=== PATIENT | female | born 1945 | race Caucasian/White ===

== ENCOUNTER 2023-04-03 08:45 | Inpatient (IN) | payer MEDICARE, OTHER ==
[2023-04-03] MEDS ORDERED: SODIUM CHLORIDE 0.9% 1,000 ML IV STA (08:49)
[2023-04-03 08:52] LABS: Glucose,Whole Blood 130 mg/dL (70-110)
--- NOTE | 2023-04-03 08:54 | ED ---
General Adult HPI - General Stated complaint: WEAKNESS Time Seen by Provider: 04/03/23 08:49 - History of Present Illness Initial comments: Dictation was produced using [employer] dictation software. please excuse any grammatical, word or spelling errors. Chief Complaint: 77-year-old female presents to the emergency department for alleged stroke History of Present Illness: 77-year-old female she is brought in from home by EMS. Patient is a limited historian. According EMS patient woke up at 7:30 AM 10 minutes after she started having alleged strokelike symptoms. EMS was called patient initially complained of right-sided weakness and slurred speech. Patient is a reliable historian. At the bedside states that she feels weak. Patient denies any pain complaints. The ROS documented in this emergency department record has been reviewed and confirmed by me. Those systems with pertinent positive or negative responses have been documented in the HPI. All other systems are other negative and/or noncontributory. - Related Data Allergies Allergy/AdvReac Type Severity Reaction Status Date / Time sulfamethoxazole AdvReac Unknown Verified 04/03/23 08:54 [From Bactrim] tetracycline AdvReac Unknown Verified 04/03/23 08:54 trimethoprim [From Bactrim] AdvReac Unknown Verified 04/03/23 08:54 Review of Systems ROS Statement: Those systems with pertinent positive or pertinent negative responses have been documented in the HPI. ROS Other: All systems not noted in ROS Statement are negative. General Exam - General Exam Comments Initial Comments: PHYSICAL EXAM: General Impression: Alert and oriented x3, not in acute distress HEENT: Normocephalic atraumatic, extra-ocular movements intact, pupils equal and reactive to light bilaterally, mucous membranes moist. Cardiovascular: Heart regular rate and rhythm Chest: Able to complete full sentences, no retractions, no tachypnea Abdomen: abdomen soft, non-tender, non-distended, no organomegaly Musculoskeletal: Pulses present and equal in all extremities, no peripheral edema Motor: no focal deficits noted Neurological: CN II-XII grossly intact, no eyebrow raising to the right face, no lower facial asymmetry with smiling. Equal weakness to bilateral lower extremities. No drift of the upper extremities, no dysarthria or aphasia Skin: Intact with no visualized rashes Psych: Normal affect and mood Course Vital Signs 08/04/03/23 04/03/23 08:54 09:00 09:15 Temperature 98.2 F Pulse Rate 73 75 79 Respiratory 18 18 18 Rate Blood Pressure 220/99 162/79 164/83 O2 Sat by Pulse 98 100 99 Oximetry 04/03/23 04/03/23 04/03/23 09:45 10:00 10:30 Temperature Pulse Rate 81 77 71 Respiratory 16 16 16 Rate Blood Pressure 175/92 158/87 169/77 O2 Sat by Pulse 98 100 98 Oximetry 04/03/23 11:00 Temperature Pulse Rate 77 Respiratory 16 Rate Blood Pressure 158/87 O2 Sat by Pulse 100 Oximetry - Reevaluation(s) Reevaluation #1: 04/03/23 08:53 Secondary to EMS history: Altered place was paged. Patient was seen and evaluated immediately upon arrival. Patient given NIH score of 1 for subjective sensory deficit to light touch of the right lower face. Patient had a candidate for altered place due to low score and risk outweigh the benefits. Alleged last known normal was 7:30 AM EKG Findings - EKG Comments: EKG Findings:: My EKG interpretation: Ventricular rate 71, sinus rhythm,. 145, QRS 89, QTc 434. No NM prolongation, no QTC prolongation, no ST or T-wave changes noted. Overall, this EKG is unremarkable Medical Decision Making - Medical Decision Making Was pt. sent in by a medical professional or institution (CAIN Anderson, FIELD RESEARCH ASSISTANT, urgent ca re, hospital, or usp...) When possible be specific @ -No Did you speak to anyone other than the patient for history (EMS, parent, family, police, friend...)? What history was obtained from this source @ -History reported from EMS as mentioned above Did you review nursing and triage notes (agree or disagree)? Why? @ -I reviewed and agree with nursing and triage notes Were old charts reviewed (outside hosp., previous admission, EMS record, old EKG, old radiological studies, urgent care reports/EKG's, usp records)? Report findings @ -No old charts were reviewed Differential Diagnosis (chest pain, altered mental status, abdominal pain women, abdominal pain men, vaginal bleeding, musculoskeletal, weakness, fever, dyspnea, syncope, headache, dizziness, GI bleed, back pain, seizure, CVA, palpatations, mental health)? @ - Differential CVA: Ischemic stroke, hemorrhagic stroke, brain tumor, atypical migraine, Wernicke's encephalopathy, seizure, multiple sclerosis, meningitis, encephalitis, hypoglyc emia, Guillain-Bey, electrolytes disturbance, myasthenia gravis.... This is not meant to be an all-inclusive list EKG interpreted by me (3pts min.). @ -See above X-rays interpreted by me (1pt min.). @ -Chest x-ray shows no acute processes CT interpreted by me (1pt min.). @ -Computed tomography scan of Brain shows no intracranial bleed U/S interpreted by me (1pt. min.). @ -None done What testing was considered but not performed or refused? (CT, X-rays, U/S, labs)? Why? @ -None What meds were considered but not given or refused? Why? @ -None Did you discuss the management of the patient with other professionals (professionals i.e. DrChristopher, PA, FIELD RESEARCH ASSISTANT, lab, RT, psych nurse, social media specialist, manager membership, teacher, production officer, case supervisor)? Give summary @ -Case discussed with stroke neurologist, Dr. leiva. Patient not a candidate for TPA or thrombectomy Was smoking cessation discussed for >3mins.? @ -No Was critical care preformed (if so, how long)? @ -No Were there social determinants of health that impacted care today? How? (Homele ssness, low income, unemployed, alcoholism, drug addiction, transportation, low edu. Level, literacy, decrease access to med. care, retirement, rehab)? @ -No Was there de-escalation of care discussed even if they declined (Discuss DNR or withdrawal of care, Hospice)? DNR status @ -No What co-morbidities impacted this encounter? (DM, HTN, Smoking, COPD, CAD, Cancer, CVA, ARF, Chemo, Hep., AIDS, mental health diagnosis, sleep apnea, morbid obesity)? @ -None Was patient admitted / discharged? Hospital course, mention meds given and route, prescriptions, significant lab abnormalities, going to OR and other pertinent info. @ -77-year-old female presents emergency department for strokelike symptoms. Vital signs upon arrival are within acceptable limits. Patient not a candidate for TPA or thrombectomy due to low NIH score risk outweigh the benefits. Patient reevaluated bedside several hours later with improvement of symptoms. Laboratory evaluation unremarkable. Imaging studies negative. Patient admitted with consultation to neurology. Aspirin provided. Undiagnosed new problem with uncertain prognosis? @ -No Drug Therapy requiring intensive monitoring for toxicity (Heparin, Nitro, Insulin, Cardizem)? @ -No Were any procedures done? @ -No Diagnosis/symptom? Acute, or Chronic, or Acute on Chronic? Uncomplicated (without systemic symptoms) or Complicated (systemic symptoms)? @ -1. CVA Side effects of treatment? @ -No Exacerbation, Progression, or Severe Exacerbation? @ -No Poses a threat to life or bodily function? How? (Chest pain, USA, CT, pneumonia, PE, COPD, DKA, ARF, appy, cholecystitis, CVA, Diverticulitis, Homicidal, Suicidal, threat to staff... and all critical care pts) @ -yes - Lab Data Result diagrams: 04/03/23 08:56 04/03/23 09:20 Lab Results 04/03/23 04/03/23 04/03/23 Range/Units 08:49 08:56 08:56 WBC 8.2 (3.8-10.6) k/uL RBC 4.68 (3.80-5.40) m/uL Hgb 14.6 (11.4-16.0) gm/dL Hct 43.0 (34.0-46.0) % MCV 91.9 (80.0-100.0) fL MCH 31.2 (25.0-35.0) pg MCHC 34.0 (31.0-37.0) g/dL RDW 12.3 (11.5-15.5) % Plt Count 214 (150-450) k/uL MPV 9.5 Neutrophils % 50 % Lymphocytes % 35 % Monocytes % 7 % Eosinophils % 4 % Basophils % 0 % Neutrophils # 4.1 (1.3-7.7) k/uL Lymphocytes # 2.9 (1.0-4.8) k/uL Monocytes # 0.6 (0-1.0) k/uL Eosinophils # 0.3 (0-0.7) k/uL Basophils # 0.0 (0-0.2) k/uL PT 10.2 (9.0-12.0) sec INR 1.0 (<1.2) APTT 22.1 (22.0-30.0) sec Sodium (137-145) mmol/L Potassium (3.5-5.1) mmol/L Chloride (98-107) mmol/L Carbon Dioxide (22-30) mmol/L Anion Gap mmol/L BUN (7-17) mg/dL Creatinine (0.52-1.04) mg/dL Est GFR (CKD-EPI)AfAm (>60 ml/min/1.73 sqM) Est GFR (CKD-EPI)NonAf (>60 ml/min/1.73 sqM) Glucose (74-99) mg/dL POC Glucose (mg/dL) 130 H (70-110) mg/dL POC Glu Engine Test Cell Technician ID Sammi Magana Calcium (8.4-10.2) mg/dL Total Bilirubin (0.2-1.3) mg/dL AST (14-36) U/L ALT (4-34) U/L Alkaline Phosphatase (38-126) U/L Creatine Kinase (30-135) U/L Troponin I (0.000-0.034) ng/mL Total Protein (6.3-8.2) g/dL Albumin (3.5-5.0) g/dL 04/03/23 04/03/23 Range/Units 08:56 09:20 WBC (3.8-10.6) k/uL RBC (3.80-5.40) m/uL Hgb (11.4-16.0) gm/dL Hct (34.0-46.0) % MCV (80.0-100.0) fL MCH (25.0-35.0) pg MCHC (31.0-37.0) g/dL RDW (11.5-15.5) % Plt Count (150-450) k/uL MPV Neutrophils % % Lymphocytes % % Monocytes % % Eosinophils % % Basophils % % Neutrophils # (1.3-7.7) k/uL Lymphocytes # (1.0-4.8) k/uL Monocytes # (0-1.0) k/uL Eosinophils # (0-0.7) k/uL Basophils # (0-0.2) k/uL PT (9.0-12.0) sec INR (<1.2) APTT (22.0-30.0) sec Sodium 135 L (137-145) mmol/L Potassium 3.8 (3.5-5.1) mmol/L Chloride 106 (98-107) mmol/L Carbon Dioxide 20 L (22-30) mmol/L Anion Gap 9 mmol/L BUN 15 (7-17) mg/dL Creatinine 0.51 L (0.52-1.04) mg/dL Est GFR (CKD-EPI)AfAm >90 (>60 ml/min/1.73 sqM) Est GFR (CKD-EPI)NonAf >90 (>60 ml/min/1.73 sqM) Glucose 119 H (74-99) mg/dL POC Glucose (mg/dL) (70-110) mg/dL POC Glu Engine Test Cell Technician ID Calcium 9.3 (8.4-10.2) mg/dL Total Bilirubin 1.0 (0.2-1.3) mg/dL AST 28 (14-36) U/L ALT 23 (4-34) U/L Alkaline Phosphatase 75 (38-126) U/L Creatine Kinase 78 (30-135) U/L Troponin I <0.012 (0.000-0.034) ng/mL Total Protein 6.9 (6.3-8.2) g/dL Albumin 3.8 (3.5-5.0) g/dL Disposition Clinical Impression: Cerebrovascular accident (CVA) Disposition: ADMITTED IP TO THIS HOSP Condition: Fair Referrals: None,Stated [REFERRING] - 1-2 days Decision Time: 11:00
[2023-04-03 09:06] LABS: Basophils % (A) 0 %; Eosinophils # (A) 0.3 k/uL (0-0.7); Eosinophils % (A) 4 %; HGB 14.6 gm/dL (11.4-16.0); Lymphocytes # (A) 2.9 k/uL (1.0-4.8); Lymphocytes % (A) 35 %; MCH 31.2 pg (25.0-35.0); MCV 91.9 fL (80.0-100.0); Mean Platelet Volume 9.5; Monocytes # (A) 0.6 k/uL (0-1.0); Monocytes % (A) 7 %; Neutrophils # (A) 4.1 k/uL (1.3-7.7); Neutrophils % (A) 50 %; Platelet Count 214 k/uL (150-450); RBC 4.68 m/uL (3.80-5.40); RDW 12.3 % (11.5-15.5); WBC 8.2 k/uL (3.8-10.6)
--- NOTE | 2023-04-03 09:07 | CT ---
EXAMINATION TYPE: CT brain wo con DATE OF EXAM: 04/03/2023 COMPARISON: None HISTORY: 77-year-old female Neuro deficits, acute, stroke suspected. TECHNIQUE: Examination was done in axial plane without intravenous contrast. Coronal and sagittal r econstructions performed. CT DLP: 1104.6 mGycm Automated exposure control for dose reduction was used. FINDINGS: There is no evidence of acute intracranial hemorrhage, acute ischemic changes, mass, mass-effect, or extra-axial fluid collection. There is no effacement of cerebral sulci or basal subarachnoid cister ns. There is no hydrocephalus. There is no midline shift. Roberts-white matter distinction is preserv ed. Old lacunar infarct left basal ganglia. Leftward nasal septal deviation. IMPRESSION: Old lacunar infarct left basal ganglia. No acute intracranial abnormality seen.
--- NOTE | 2023-04-03 09:16 | CT ---
EXAMINATION TYPE: CT angio head neck DATE OF EXAM: 04/03/2023 COMPARISON: None HISTORY: 77-year-old female Neuro deficits, acute, stroke suspected. TECHNIQUE: Contiguous axial scanning of the head and neck performed with IV Contrast, patient injecte d with 65ml mL of Isovue 370. Coronal/sagittal reconstructions performed. 3-D reconstructions generat ed on a dedicated independent workstation. CT DLP: 548.6 mGycm Automated exposure control for dose reduction was used. FINDINGS: Neck: Mildly enlarged lower left paratracheal lymph node up to 1.4 cm. Partially visualized left hilar node s measuring up to 1.2 cm. Aberrant takeoff of the left vertebral artery directly from the aortic arch.. Diminutive/hypoplastic right vertebral artery. The left vertebral artery is also relatively small in caliber. Both vessels are otherwise patent throughout. Right common carotid artery is patent. Minimal atherosclerotic calcifications right carotid bulb. No significant right ICA narrowing. NASCET criteria was utilized. The left common and left internal carotid arteries are seen. Brain: Vertebral arteries are patent. 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 There is persistent origin of the left posterior cerebral artery. Posterior circulation on the resting. There is a 3 mm saccular protuberance projecting posteriorly from the clinoid segment of the left ICA just below the takeoff of the ophthalmic artery, and axial image 141. The internal carotid arteries are patent. Patent right posterior communicating artery. Hypoplastic A1 segment left anterior cerebral artery. Anterior circulation otherwise patent. Dural venous sinuses are patent. IMPRESSION: NECK: 1. 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 NO HEMODYNAMICALLY SIGNIFICANT STENOSIS. 2. ABERRANT DIRECT TAKEOFF OF THE LEFT VERTEBRAL ARTERY DIRECTLY FROM THE AORTIC ARCH. NONDOMINANT RI GHT VERTEBRAL ARTERY. BOTH VERTEBRAL ARTERIES, HOWEVER, ARE RELATIVELY SMALL IN CALIBER, LIKELY ON A CONGENITAL BASIS. 3. Mildly enlarged mediastinal left hilar lymph nodes measuring up to 1.4 cm. Recommend nonemergent f ollow-up CT chest to further evaluate and exclude underlying neoplasm. HEAD: 4. 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 Correlate for any chronic sympto ms of vertebrobasilar insufficiency. 5. Anatomic variation with persistent origin left IMPORT COORDINATOR. Hypoplastic A1 segment left ZARA. 6. 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 Recomme nd 6 month follow-up MRA tunica-biloxi of Nunez. 7. No large vessel intracranial arterial occlusion, significant stenosis, or aneurysmal change is see n.
[2023-04-03 09:26] LABS: Partial Thromboplastin Time 22.1 sec (22.0-30.0); Prothrombin Time 10.2 sec (9.0-12.0)
[2023-04-03 09:41] LABS: ALT 23 U/L (4-34); AST 28 U/L (14-36); African American GFR (CKD) >90 (>60 ml/min/1.73 sqM); Albumin 3.8 g/dL (3.5-5.0); Alkaline Phosphatase 75 U/L (38-126); Anion Gap 9 mmol/L; Blood Urea Nitrogen 15 mg/dL (7-17); Calcium 9.3 mg/dL (8.4-10.2); Carbon Dioxide 20 mmol/L (22-30); Chloride 106 mmol/L (98-107); Creatine Kinase 78 U/L (30-135); Glucose 119 mg/dL (74-99); Non-African American GFR(CKD) >90 (>60 ml/min/1.73 sqM); Potassium 3.8 mmol/L (3.5-5.1); Sodium 135 mmol/L (137-145); Total Protein 6.9 g/dL (6.3-8.2)
--- NOTE | 2023-04-03 09:58 | XR ---
EXAMINATION TYPE: XR chest 2V DATE OF EXAM: 04/03/2023 COMPARISON: None HISTORY: 77 year-old female altered mental status, confusion TECHNIQUE: AP and lateral views FINDINGS: Heart normal size. Mild tortuosity thoracic aorta. No consolidation or pleural effusion. Moderate deg enerative disc disease midthoracic spine. IMPRESSION: No acute cardiopulmonary process.
[2023-04-03] MEDS ORDERED: ASPIRIN 81 MG PO STA (10:13)
[2023-04-03] MEDS ORDERED: NALOXONE 0.4 MG/ML 1 ML VIAL IV PRN (10:52)
--- NOTE | 2023-04-03 12:01 | P.HPIM ---
History of Present Illness H&P Date: 04/03/23 History of Presenting Illness: Patient is a very pleasant 77-year-old female with a past medical history of hypertension, hyperlipidemia, and chronic lumbar back pain. Patient reports awakening this morning of normal mentation and reports approximately 10 minutes after awakening she began to notice some tingling in her right arm followed by right-sided weakness to her face, arm, and leg. Patient and her at bedside reports this was then accompanied by difficulty with her speech stating she was both slurring her words but also having difficulties getting words out. Patient states in addition she has minor headache to frontal region of head but denies having any dizziness, lightheadedness, changes in vision or hearing, dysphasia, chest pain, palpitations, shortness of breath, or any other complaints at this time. Patient underwent stroke workup in the emergency department. Upon arrival patient had full resolution of her difficulties with speech and right-sided weakness and facial droop had resolved. Patient reported only residual deficit at time of arrival was right arm tingling and was initially given an NIH score of 1. CT head was completed and radiology report reviewed stating positive for old lacunar infarct of left basal ganglia and negative for acute intercranial abnormality. CTA neck completed and radiology report stating patent vertebral and carotid arteries of the neck with no hemodynamically significant stenosis, apparent direct takeoff of the left vertebral artery directly from the aortic arch, nondominant right vertebral artery and vertebral arteries relatively small in caliber likely on congenital basis, and mildly enlarged mediastinal left hilar lymph nodes measuring up to 1.[address] chest to evaluate and exclude underlying neoplasm. 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 EKG completed showing normal sinus rhythm at 71 bpm upon personal review and interpretation. Chest x-ray negative for acute cardiopulmonary process. Labs completed and reviewed. CBC and coagulation profile were unremarkable. BMP showing mild hyponatremia with sodium of 135, hypocarbia with bicarb of 20, and blood glucose of 119. Liver profile unremarkable. Troponin negative at less than 0.012. Case discussed with ED provider in detail. Patient being admitted to cardiac stepdown unit with telemetry. Consult placed to neurology. Review of systems: Pertinent positives and negatives as discussed in HPI, a complete review of systems was performed and all other systems are negative. Physical exam: Vital signs reviewed and stable. General: Nontoxic, no distress and appears stated age. Derm: Skin warm and dry, normal coloration for ethnicity. Head: Atraumatic, normocephalic and symmetric. Eyes: EOMs intact, no lid lag, and anicteric sclera Mouth: no lip lesions, mucus membranes moist Cardiovascular: regular rate and rhythm with normal S1S2, systolic murmur, positive posterior tibial pulses bilaterally, and cap refill < 2 seconds. Lungs: Respirations even, regular, and unlabored on room air. Lungs CTA bilaterally, no rhonchi, no rales, no wheezing, and no accessory muscle usage. Abdominal: soft, nontender to palpation, no guarding, no appreciable organomegaly Ext: ROM intact. No gross muscle atrophy, no edema, no contractures Neuro: Speech clear, face symmetrical and CN II-XII grossly intact with no noted focal neuro deficits. Patient does report tingling and decreased sensation to right index finger and thumb remains. Normal [id number]. Strength equal. Patient did have some noted difficulty with placement of right index finger upon assessing finger to nose. Psych: Alert and oriented to person, place, time, and situation. Appropriate and pleasant affect. Assessment and Plan of Care: Patient presented to the emergency department with a chief complaint of sudden onset right-sided weakness and difficulties with speech. Right-sided weakness, rule out CVA versus TIA Episode aphasia Hypertensive urgency with history of hypertension Hyperlipidemia -Initial NIH reported to be 1. -Continue NIH stroke scale with advanced neuro assessments every 4 hours. -Telemetry monitoring. -Allow for permissive hypertension over the next 24 hours. Patient may resume daily medication regimen with losartan 25 mg daily tomorrow morning. -Aspirin 324 mg now followed by 81 mg daily and atorvastatin 40 mg nightly. -Echocardiogram. -Consult neurologist, appreciate recommendations -Consult placed to physical and occupational therapy. Abnormal imaging findings, enlarged mediastinal lymph nodes -Order placed for CT chest to further evaluate and rule out neoplastic process. Chronic lower back pain secondary to lumbar stenosis Patient to be provided with symptomatic care and pain management. Orders placed for Tylenol 650 every 6 hours as needed for [id number] pain and [place] 5/325 mg tablets every 4 hours as needed for moderate to severe pain. Imaging review: -CT head was completed and radiology report reviewed stating positive for old lacunar infarct of left basal ganglia and negative for acute intercranial abnormality. -CTA neck completed and radiology report stating patent vertebral and carotid arteries of the neck with no hemodynamically significant stenosis, apparent direct takeoff of the left vertebral artery directly from the aortic arch, nondominant right vertebral artery and vertebral arteries relatively small in ca liber likely on congenital basis, and mildly enlarged mediastinal left hilar lymph nodes measuring up to 1.[address] chest to evaluate and exclude underlying neoplasm. 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 -EKG completed showing normal sinus rhythm at 71 bpm upon personal review and interpretation. -Chest x-ray negative for acute cardiopulmonary process. Data review: -Labs completed and reviewed. CBC and coagulation profile were unremarkable. BMP showing mild hyponatremia with sodium of 135, hypocarbia with bicarb of 20, and blood glucose of 119. Liver profile unremarkable. Troponin negative at less than 0.012. -Vital signs reviewed. Blood pressure hypertensive upon arrival with blood pressure 220/99, heart rate 73, respiratory rate 18, temp 98.2F, SpO2 of 90% on room air. Case discussed with ED provider in detail. Patient being admitted to cardiac stepdown unit with telemetry. Consult placed to neurology. CODE STATUS: Full code DVT prophylaxis: Lovenox Discussed with: patient, patient's , ED provider, and RN Anticipated discharge date: clinical course to determine Anticipated discharge place: home Patient was seen independently by Nurse Practitioner. This document was prepared using [employer] dictation software. Please allow for errors in bicycle assembler while rare they do occur. Clement Mendoza NP rendered care for this patient independently, reviewed the findings and plan as documented in the note above. I did not physically speak with or examine the patient on this date. Past Medical History Past Medical History: Unable to Obtain, Hypertension History of Any Multi-Drug Resistant Organisms: None Reported Past Surgical History: Unable to Obtain Past Psychological History: No Psychological Hx Reported Smoking Status: Never smoker Past Alcohol Use History: None Reported Past Drug Use History: None Reported - Past Family History Father Family Medical History: Diabetes Mellitus Mother Family Medical History: Diabetes Mellitus Sister(s) Family Medical History: CVA/TIA Medications and Allergies Home Medications Medication Instructions Recorded Confirmed Type Calcium Carbonate/Vitamin D3 1 tab PO DAILY 04/03/23 04/03/23 History [Calcium 500 mg-Vit D3 5 mcg (200 Unit)] DULoxetine HCL [Cymbalta] 20 mg PO DAILY 04/03/23 04/03/23 History Estrogens, Conjugated [Premarin] 0.3 mg PO Q48H 04/03/23 04/03/23 History Losartan [Cozaar] 25 mg PO DAILY 04/03/23 04/03/23 History Multivitamins, Thera [Multivitamin 1 tab PO DAILY 04/03/23 04/03/23 History (formulary)] Omeprazole 04/03/23 History Omeprazole 20 mg PO DAILY 04/03/23 04/03/23 History S-Adenosylmethionine Sul Tosyl 200 mg PO DAILY 04/03/23 04/03/23 History [[place]-E] Vitamin B Complex 1 cap PO DAILY 04/03/23 04/03/23 History Aspirin 81 mg PO DAILY 30 Days #30 tab 04/05/23 Rx Clopidogrel [Plavix] 75 mg PO DAILY 20 Days #20 tab 04/05/23 Rx Pravastatin Sodium [Pravachol] 40 mg PO DAILY 90 Days #180 tab 04/05/23 Rx metFORMIN HCL [Glucophage] 500 mg PO BID 30 Days #60 tab 04/05/23 Rx Allergies Allergy/AdvReac Type Severity Reaction Status Date / Time sulfamethoxazole AdvReac Unknown Verified 04/03/23 08:54 [From Bactrim] tetracycline AdvReac Unknown Verified 04/03/23 08:54 trimethoprim [From Bactrim] AdvReac Unknown Verified 04/03/23 08:54 Physical Exam Vitals: Vital Signs Temp Pulse Resp BP Pulse Ox 04/03/23 11:00 77 16 158/87 100 04/03/23 10:30 71 16 169/77 98 04/03/23 10:00 77 16 158/87 100 04/03/23 09:45 81 16 175/92 98 04/03/23 09:15 79 18 164/83 99 04/03/23 09:00 75 18 162/79 100 04/03/23 08:54 98.2 F 73 18 220/99 98 Intake and Output 04/02/23 04/03/23 04/03/23 22:59 06:59 14:59 Other: Weight 76.6 kg Results CBC & Chem 7: 04/03/23 08:56 04/03/23 09:20 Labs: Abnormal Lab Results - Last 24 Hours (Table) 04/03/23 04/03/23 Range/Units 08:49 09:20 Sodium 135 L (137-145) mmol/L Carbon Dioxide 20 L (22-30) mmol/L Creatinine 0.51 L (0.52-1.04) mg/dL Glucose 119 H (74-99) mg/dL POC Glucose (mg/dL) 130 H (70-110) mg/dL
[2023-04-03] MEDS ORDERED: ACETAMINOPHEN TAB 325 MG TAB PO PRN (12:04)
[2023-04-03] MEDS ORDERED: MELATONIN 3 MG TABLET PO PRN (12:04)
[2023-04-03] MEDS ORDERED: ONDANSETRON 4 MG/2 ML VIAL IVP PRN (12:04)
[2023-04-03] MEDS ORDERED: HYDROcodone/APAP 5-325MG 1 EACH TAB PO PRN (12:04)
[2023-04-03] MEDS: ATORVASTATIN 40 MG TAB PO SCH (19:42)
--- NOTE | 2023-04-03 21:16 | CT ---
EXAMINATION TYPE: CT chest wo con DATE OF EXAM: 04/03/2023 COMPARISON: Radiograph 04/03/2023 HISTORY: 77-year-old female Follow-up on concerns of enlarged hilar lymph nodes TECHNIQUE: Contiguous axial scanning of the chest without IV contrast. Coronal/sagittal reconstructio ns performed. CT DLP: 308.4.mGycm. Automatic exposure control utilized for a dose reduction. FINDINGS: The heart is normal size without pericardial effusion. Aorta normal caliber with mild atherosclerotic calcifications in the area narrowing takeoff of the le ft vertebral artery directly from the aortic arch. Prominent 9 mm lower left paratracheal lymph node is present. The left hilar lymph node described on CTA not well-demonstrated on this noncontrast study. No other thoracic lymphadenopathy identified by CT size criteria. There is a large hiatal hernia involving half of the stomach in the lower chest. Adjacent atelectasis at the medial left base and additional streaky areas of atelectasis on both sides. Couple 4 mm right lower lung pulmonary nodules, axial image 37 and 35 are nonspecific and should be r eassessed at follow-up Otherwise, no consolidation or pleural effusion. Visualized upper abdomen shows no gross abnormality. Suspect underlying fatty infiltration of the frankie er. Bones: Moderate degenerative disc disease lower thoracic spine and upper lumbar spine. Moderate to ad vanced spondylotic change visualized lower cervical spine. Accentuated lower thoracic kyphosis. IMPRESSION: 1. On imaging of the chest, the mediastinal lymph node appears prominent but nonenlarged at 9 mm and the left hilar lymph node is not well depicted. There is an overall benign appearance. 2. A couple 4 mm right lower lung pulmonary nodules. Six-month follow-up CT to reassess. 3. Large hiatal hernia involving half of the stomach in the lower chest. Strandy areas of atelectasis bilaterally.
[2023-04-04] MEDS: ENOXAPARIN 40 MG/0.4 ML SYRINGE SQ SCH (09:02)
[2023-04-04] MEDS: DULoxetine HCL 20 MG CAPSULE.DR PO SCH (09:02)
[2023-04-04] MEDS: ASPIRIN 81 MG PO SCH (09:02)
[2023-04-04] MEDS: MULTIVITAMINS, THERA 1 EACH TAB PO SCH (09:02)
[2023-04-04] MEDS: LOSARTAN 25 MG TAB PO SCH (09:02)
--- NOTE | 2023-04-04 09:41 | P.CNNES ---
History of Present Illness Consult date: 04/03/23 Requesting physician: Earl Gan Reason for Consult: code stroke History of Present Illness: Patient is a 77-year-old right-handed female, who presented to the hospital by ambulance today at 8:45 AM with right-sided paresthesias. Patient states that she woke up at 7:30 AM and was feeling fine. About 10-15 minutes after waking up she noticed numbness and tingling of the right arm, that extended to the leg and then the face and then also involved the right side of the tongue. She also noticed some weakness of the right hand, as she has trouble putting coffee in the coffee pot chang. Her right hand felt weak. She fell little unsteady while walking. She dropped the tissue with the right hand. There was no slurred speech, but she had to think before she could not talk. Her speech was more slow and deliberate. There was no visual problems any vertigo. Patient does admit to having very slight headache in the frontal region only noticed in the ER. EMS flow sheet not available in the chart. Blood pressure on arrival was 220/99, pulse rate 73, temperature 98.2. Blood test shows normal CBC PT/PTT, sodium 135 potassium 3.8, normal renal, hepatic panel. Troponins negative. CT head revealed old lacunar infarct left basal ganglia. No acute intracranial abnormality seen. Episodes reviewed CT head, agree with the findings. Chest x- ray showed no acute cardiopulmonary process. EKG shows sinus rhythm. Stroke code alteplase was initiated. Her NIH stroke scale was 1 for subjective sensory deficit to light touch of the right lower face. ED staff discuss case with Dr. Pena, and patient was considered not a candidate for TPA because of low NIH stroke scale, risks outweigh the benefits. Patient states that that about 1-2 hours after she came to the hospital, the symptoms mostly resolved by 10:30 AM. At present only the right index finger and the thumb feels numb and tingly. Rest of the symptoms have resolved. Patient has history of hypertension. She is a diabetic for last 8 years. She used to take Ozempic, but produced GI side effects. She does have hyperlipidemia, takes pravastatin. Never smoked, does not drink alcohol. She does have a history of severe spinal stenosis for which she had undergone radiofrequency ablation aberration in December 2022. It helped not a whole lot. Patient does not take any antiplatelet medication at home. She had an event 3-4 weeks ago, when she felt weak, like will pass out if she did not sit down. Her whole body felt on fire for about 5 minutes. She saw her primary physician, who switched from Lopressor to losartan. Review of Systems Constitutional: Reports weight gain, Denies chills, Denies fever Eyes: denies blurred vision, denies diplopia, denies pain Ears: bilateral: decreased hearing (Aids ), deny: ear discharge Ears, nose, mouth and throat: Reports headache, Denies sore throat Cardiovascular: Reports dyspnea on exertion, Denies chest pain, Denies shortness of breath Respiratory: Denies cough, Denies excessive sputum Gastrointestinal: Denies abdominal pain, Denies diarrhea, Denies nausea, Denies vomiting Genitourinary: Denies dysuria, Denies hematuria, Denies urge incontinence, Denies urgency Musculoskeletal: Reports low back pain, Denies myalgias, Denies neck pain Integumentary: Denies pruritus, Denies rash Neurological: Reports as per HPI Psychiatric: Denies anxiety, Denies depression Endocrine: Reports fatigue, Reports weight change Hematologic/Lymphatic: Denies easy bleeding, Denies easy bruising Past Medical History Past Medical History: Hyperlipidemia, Hypertension Additional Past Medical History / Comment(s): pre diabetic History of Any Multi-Drug Resistant Organisms: None Reported Past Surgical History: No Surgical Hx Reported Past Anesthesia/Blood Transfusion Reactions: No Reported Reaction Past Psychological History: No Psychological Hx Reported Smoking Status: Never smoker Past Alcohol Use History: None Reported Past Drug Use History: None Reported - Past Family History Father Family Medical History: Diabetes Mellitus Mother Family Medical History: Diabetes Mellitus Sister(s) Family Medical History: CVA/TIA Medications and Allergies Home Medications Medication Instructions Recorded Confirmed Type Calcium Carbonate/Vitamin D3 1 tab PO DAILY 04/03/23 04/03/23 History [Calcium 500 mg-Vit D3 5 mcg (200 Unit)] DULoxetine HCL [Cymbalta] 20 mg PO DAILY 04/03/23 04/03/23 History Estrogens, Conjugated [Premarin] 0.3 mg PO Q48H 04/03/23 04/03/23 History Losartan [Cozaar] 25 mg PO DAILY 04/03/23 04/03/23 History Multivitamins, Thera [Multivitamin 1 tab PO DAILY 04/03/23 04/03/23 History (formulary)] Omeprazole 04/03/23 History Omeprazole 20 mg PO DAILY 04/03/23 04/03/23 History Pravastatin Sodium [Pravachol] 20 mg PO DAILY 04/03/23 04/03/23 History S-Adenosylmethionine Sul Tosyl 200 mg PO DAILY 04/03/23 04/03/23 History [[place]-E] Vitamin B Complex 1 cap PO DAILY 04/03/23 04/03/23 History Allergies Allergy/AdvReac Type Severity Reaction Status Date / Time sulfamethoxazole AdvReac Unknown Verified 04/03/23 08:54 [From Bactrim] tetracycline AdvReac Unknown Verified 04/03/23 08:54 trimethoprim [From Bactrim] AdvReac Unknown Verified 04/03/23 08:54 Physical Examination - Vital Signs Vital Signs: Vital Signs Temp Pulse Pulse Resp BP BP Pulse Ox 04/03/23 15:28 97.5 F L 80 16 109/62 97 04/03/23 12:16 97.8 F 77 18 167/80 98 04/03/23 12:00 97.6 F 74 20 165/68 97 04/03/23 11:30 64 18 160/58 97 04/03/23 11:00 77 16 158/87 100 04/03/23 10:30 71 16 169/77 98 04/03/23 10:00 77 16 158/87 100 04/03/23 09:45 81 16 175/92 98 04/03/23 09:15 79 18 164/83 99 04/03/23 09:00 75 18 162/79 100 04/03/23 08:54 98.2 F 73 18 220/99 98 Intake and Output 04/03/23 04/03/23 04/03/23 06:59 14:59 22:59 Intake Total 240 Balance 240 Intake: Oral 240 Other: # Voids 1 Weight 76.6 kg Patient is an elderly female, very pleasant, in no acute distress. Patient is alert awake oriented to time place and person. Speech and language functions are normal. Patient can name and repeat very well. No aphasia or dysarthria. Attention, concentration and fund of knowledge is adequate. On cranial nerve examination, pupils are equal, round and reacting to light, visual figueroa are full on confrontation, with no neglect on double simultaneous stimulation. Extraocular muscles are intact with no nystagmus. Face is symmetric, tongue protrudes to the midline. Palatal elevation and sensation normal, hearing and shoulder shrug normal, facial sensation normal. On muscle strength testing, there is no pronator drift and the strength is normal in arms and legs distally and proximally. Deep tendon reflexes are symmetric 1 at the biceps, 1 brachioradialis, 2 at the knees, 2 ankles and plantars downgoing bilaterally. Sensory to touch is equal with no neglect on double simultaneous stimulation. Cerebellar function showed no ataxia for [id number] testing. No dysd iadochokinesia. No ataxia for [id number] testing on either side. Tone and bulk of muscles normal. Gait deferred.. On general examination, there is no carotid bruit or murmur, S1-S2 audible. Saira st is clear on consultation. Abdomen is soft nontender. No organomegaly, bowel sounds present. Peripheral pulses are present. No edema. Results - Laboratory Findings CBC and BMP: 04/03/23 08:56 04/03/23 09:20 Abnormal Lab Findings: Abnormal Labs 04/03/23 04/03/23 08:49 09:20 Sodium 135 L Carbon Dioxide 20 L Creatinine 0.51 L Glucose 119 H POC Glucose (mg/dL) 130 H Assessment and Plan Assessment: * Stroke/TIA, manifesting with transient numbness of the right side of the body, subtle right-sided weakness and slight speech difficulty. Symptoms have mostly resolved, except for residual numbness of the right thumb and index finger. * Hypertension, uncontrolled * Prediabetes * Hyperlipidemia * Cerebral aneurysm * History of lumbar spinal stenosis. Plan: * Patient's symptoms have mostly resolved. Her current NIH stroke scale is 0. Patient was not a candidate for TPA. * MRI of the brain without contrast, evaluate for acute CVA * 2-D echo with bubble study to rule out PFO * CTA head and neck showed: Patent vertebral and carotid arteries of the neck with no hemodynamically significant stenosis. Both vertebral arteries and basilar arteries are relatively small in caliber, likely on a congenital basis. Correlate for any chronic symptoms of vertebrobasilar insufficiency. 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 Recommend 6 month follow-up [facility] [place] [facility] [place]. * Check MRI of the head to follow-up on the cerebral aneurysm, also to assess for vertebrobasilar system. * Patient has been loaded with aspirin 324 mg in the ER. We will maintain on aspirin 81 mg daily. Avoid dual antiplatelet medication because of cerebral aneurysm. * Fasting a.m. lipid panel. Patient on pravastatin 20 mg at home. * Patient takes hormonal replacement therapy with Premarin 0.3 mg every 48 hours. Suggest holding off on Premarin until CVA ruled out, and discuss with primary physician. * Hemoglobin A1c 6.9 * Permissive hypertension for next 24-48 hours. However keep it < 180/110 because of cerebral aneurysm noted on CTA. Thereafter may control the blood pressure to normotensive level. * Close neuro checks. * Telemetry monitoring rule out any arrhythmia * DVT prophylaxis: Lovenox 40 mg subcu daily * Neurology will continue ot follow. Thank you for the consult.
[2023-04-04 10:13] LABS: Chol/HDL Ratio 4.54 Ratio
[2023-04-04] MEDS: PANTOPRAZOLE 40 MG TABLET PO SCH (10:54)
--- NOTE | 2023-04-04 17:37 | P.PN ---
Subjective Progress Note Date: 04/04/23 Hospital course: Patient is a very pleasant 77-year-old female with a past medical history of hypertension, hyperlipidemia, and chronic lumbar back pain. Patient reports awakening this morning of normal mentation and reports approximately 10 minutes after awakening she began to notice some tingling in her right arm followed by right-sided weakness to her face, arm, and leg. Patient and her at bedside reports this was then accompanied by difficulty with her speech stating she was both slurring her words but also having difficulties getting words out. Patient states in addition she has minor headache to frontal region of head but denies having any dizziness, lightheadedness, changes in vision or hearing, dysphasia, chest pain, palpitations, shortness of breath, or any other complaints at this time. Patient underwent stroke workup in the emergency department. Upon arrival patient had full resolution of her difficulties with speech and right-sided weakness and facial droop had resolved. Patient reported only residual deficit at time of arrival was right arm tingling and was initially given an NIH score of 1. CT head was completed and radiology report reviewed stating positive for old lacunar infarct of left basal ganglia and negative for acute intercranial abnormality. CTA neck completed and radiology report stating patent vertebral and carotid arteries of the neck with no hemodynamically significant stenosis, apparent direct takeoff of the left tammy tebral artery directly from the aortic arch, nondominant right vertebral artery and vertebral arteries relatively small in caliber likely on congenital basis, and mildly enlarged mediastinal left hilar lymph nodes measuring up to 1.[address] chest to evaluate and exclude underlying neoplasm. 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 EKG completed showing normal sinus rhythm at 71 bpm upon personal review and interpretation. Chest x- ray negative for acute cardiopulmonary process. Labs completed and reviewed. CBC and coagulation profile were unremarkable. BMP showing mild hyponatremia with sodium of 135, hypocarbia with bicarb of 20, and blood glucose of 119. Liver profile unremarkable. Troponin negative at less than 0.012. Patient was admitted to cardiac stepdown unit with telemetry. Consult placed to neurology. Physical exam: Vital signs reviewed and stable. General: Nontoxic, no distress and appears stated age. Derm: Skin warm and dry, normal coloration for ethnicity. Head: Atraumatic, normocephalic and symmetric. Eyes: EOMs intact, no lid lag, and anicteric sclera Mouth: no lip lesions, mucus membranes moist Cardiovascular: regular rate and rhythm with normal S1S2, systolic murmur, positive posterior tibial pulses bilaterally, and cap refill < 2 seconds. Lungs: Respirations even, regular, and unlabored on room air. Lungs CTA bilaterally, no rhonchi, no rales, no wheezing, and no accessory muscle usage. Abdominal: soft, nontender to palpation, no guarding, no appreciable organomegaly Ext: ROM intact. No gross muscle atrophy, no edema, no contractures Neuro: Speech clear, face symmetrical and CN II-XII grossly intact with no noted focal neuro deficits. Patient does report tingling and decreased sensation to right index finger and thumb remains. Normal [id number]. Strength equal. Patient did have some noted difficulty with placement of right index finger upon assessing finger to nose. Psych: Alert and oriented to person, place, time, and situation. Appropriate and pleasant affect. Assessment and Plan of Care: Patient presented to the emergency department with a chief complaint of sudden onset right-sided weakness and difficulties with speech. Upon assessment this morning patient continues to have numbness/tingling to right index finger, right thumb, and right upper lip. Right-sided weakness, rule out CVA versus TIA Episode aphasia Hypertensive urgency with history of hypertension Hyperlipidemia -Continue neuro assessments every 4 hours. -Telemetry monitoring. -Hemoglobin A1c elevated at 6.9%. Lipid profile also elevated showing total triglycerides 229, cholesterol 237, LDL 139, VLDL 45.8. -Continue aspirin 81 mg daily and atorvastatin 40 mg nightly. -Echocardiogram. -Neurology following and discussed plan of care recommending MRI and MRA brain. -Consult placed to physical and occupational therapy. Large intrathoracic hiatal hernia -CT chest completed showing a large hiatal hernia involving half of the stomach in the lower chest. -Consult placed to Gen. surgery for evaluation. Abnormal imaging findings, enlarged mediastinal lymph nodes. CT chest showing mediastinal lymph nodes appear prominent but not enlarged. Reported to be overall benign appearance. Lung nodules, recommend 6 month follow-up CT to reassess. Elevated hemoglobin A1c, newly diagnosed type 2 diabetes. -Patient will need to be discharged home on oral diabetic medications such as Glucophage 500 mg twice daily. Chronic lower back pain secondary to lumbar stenosis Patient to be provided with symptomatic care and pain management. Orders placed for Tylenol 650 every 6 hours as needed for [id number] pain and [place] 5/325 mg tablets every 4 hours as needed for moderate to severe pain. Imaging review: -CT chest completed showing mediastinal lymph nodes appear prominent but no nenlarged at 9 mm. Reported to be an overall benign appearance. A couple 4 mm right lower lobe lung nodules recommending a 6 month follow-up CT to reassess and a large hiatal hernia involving half of the stomach in the lower chest. Data review: -Labs completed and reviewed. Hemoglobin A1c elevated at 6.9%. -Vital signs reviewed. Blood pressure 118/78, heart rate 88, respiratory rate 16, and SpO2 of 97% on room air. CODE STATUS: Full code DVT prophylaxis: Lovenox Discussed with: patient neurologist , and RN Anticipated discharge date: clinical course to determine Anticipated discharge place: home Patient was seen independently by Nurse Practitioner. This document was prepared using [employer] dictation software. Please allow for errors in nuclear spectroscopist while rare they do occur. Clement Mendoza NP rendered care for this patient independently, reviewed the findings and plan as documented in the note above. I did not physically speak with or examine the patient on this date. Objective - Vital Signs Vital signs: Vital Signs Temp 98 F 04/03/23 20:00 Pulse 88 04/04/23 04:00 Resp 16 04/04/23 04:00 BP 118/78 04/04/23 04:00 Pulse Ox 97 04/04/23 04:00 FiO2 Intake & Output 04/03/23 04/04/23 04/04/23 18:59 06:59 18:59 Intake Total 358 Balance 358 Weight 76.6 kg Intake: Oral 358 Other: # Voids 1 1 - Labs CBC & Chem 7: 04/03/23 08:56 04/03/23 09:20 Labs: Abnormal Lab Results - Last 24 Hours (Table) 04/03/23 04/03/23 04/03/23 Range/Units 08:49 08:56 09:20 Sodium 135 L (137-145) mmol/L Carbon Dioxide 20 L (22-30) mmol/L Creatinine 0.51 L (0.52-1.04) mg/dL Glucose 119 H (74-99) mg/dL POC Glucose (mg/dL) 130 H (70-110) mg/dL Hemoglobin A1c 6.9 H (<=6.0) %
[2023-04-04] MEDS: ATORVASTATIN 40 MG TAB PO SCH (19:33)
--- NOTE | 2023-04-04 20:15 | P.PN ---
Subjective Progress Note Date: 04/04/23 Patient was seen for a follow-up. Patient's was also present today. Patient continues to have tingling of the right index finger and the thumb. Also has numbness and tingling of the right upper more than the right lower lip region. Patient states that this was present yesterday as well, although she did not report to me. No new concerns. Objective - Vital Signs Vital signs: Vital Signs Temp 98 F 04/03/23 20:00 Pulse 91 04/04/23 15:13 Resp 16 04/04/23 15:13 BP 118/58 04/04/23 15:13 Pulse Ox 95 04/04/23 15:13 FiO2 Intake & Output 04/03/23 04/04/23 04/04/23 18:59 06:59 18:59 Intake Total 358 360 Output Total 0 Balance 358 360 Weight 76.6 kg Intake: Oral 358 360 Output: Gastric Drainage 0 Urine 0 Stool 0 Urine/Stool Mix 0 Emesis 0 Oral Regurgitation 0 Other 0 Other: # Voids 1 1 0 # Bowel Movements 0 - Exam Patient's mental status, speech and language functions are normal. Cranial nerves are normal. Muscle strength normal. No ataxia. Sensations equal - Labs CBC & Chem 7: 04/03/23 08:56 04/03/23 09:20 Labs: Abnormal Lab Results - Last 24 Hours (Table) 04/03/23 04/03/23 Range/Units 08:56 09:20 Hemoglobin A1c 6.9 H (<=6.0) % Triglycerides 229.00 H (0.00-149.00) mg/dL Cholesterol 237.00 H (0.00-200.00) mg/dL LDL Cholesterol, Calc 139.0 H (0.0-131.0) mg/dL VLDL Cholesterol, Calc 45.80 H (5.00-40.00) mg/dL Assessment and Plan Assessment: * Probable stroke, manifesting with transient numbness of the right side of the body, subtle right-sided weakness and slight speech difficulty. Symptoms have mostly resolved, except for residual numbness of the right thumb and index finger and some numbness of the right perioral region. * Hypertension, uncontrolled * Prediabetes * Hyperlipidemia * Cerebral aneurysm * History of lumbar spinal stenosis. Plan: * Patient's symptoms have mostly resolved. Her current NIH stroke scale is 0. Patient was not a candidate for TPA as per ED records. * MRI of the brain without contrast, evaluate for acute CVA * 2-D echo with bubble study to rule out PFO * CTA head and neck showed: Patent vertebral and carotid arteries of the neck with no hemodynamically significant stenosis. Both vertebral arteries and basilar arteries are relatively small in caliber, likely on a congenital basis. Correlate for any chronic symptoms of vertebrobasilar insufficiency. 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 Recommend 6 month follow-up [facility] [place] [facility] [place]. * Check MRI of the head to follow-up on the cerebral aneurysm, also to assess for vertebrobasilar system. * Patient has been loaded with aspirin 324 mg in the ER. We will maintain on aspirin 81 mg daily. Avoid dual antiplatelet medication because of cerebral aneurysm. * Fasting a.m. lipid panel with cholesterol 237, LDL 139, HDL 52 and triglycerides 229. Patient on pravastatin 20 mg at home. Patient has been switched to Lipitor 40 mg daily. Patient says that Lipitor produces legs cramps. In that case, newer anti-lipidemic agents could be tried. Patient recommended to discuss with primary physician. Target LDL <70. * Patient takes hormonal replacement therapy with Premarin 0.3 mg every 48 hours. Suggest holding off on Premarin until CVA ruled out, and discuss with primary physician. * Hemoglobin A1c 6.9, per family members, it was 6.3 checked previously. Continue to work with primary physician regarding optimize control of diabetes. * Optimize control of blood pressure and gradually improved to normotensive level. * Close neuro checks. * Telemetry monitoring rule out any arrhythmia * DVT prophylaxis: Lovenox 40 mg subcu daily * Dr. Andrea Mcadams to resume neurology service from the morning.
[2023-04-05] MEDS: PANTOPRAZOLE 40 MG TABLET PO SCH (06:36)
[2023-04-05] MEDS ORDERED: PANTOPRAZOLE 40 MG TABLET PO SCH (07:30)
[2023-04-05 08:25] VITALS: PULSE 89; TEMP 97.7
[2023-04-05] MEDS: MULTIVITAMINS, THERA 1 EACH TAB PO SCH (08:26)
[2023-04-05] MEDS: ENOXAPARIN 40 MG/0.4 ML SYRINGE SQ SCH (08:26)
[2023-04-05] MEDS: LOSARTAN 25 MG TAB PO SCH (08:26)
[2023-04-05] MEDS: DULoxetine HCL 20 MG CAPSULE.DR PO SCH (08:26)
[2023-04-05] MEDS: ASPIRIN 81 MG PO SCH (08:26)
--- NOTE | 2023-04-05 11:36 | CA ---
Transthoracic Echo Report Name: Alize Edwards Age: 77 Gender: F : 1945 Exam Date: 04/05/2023 08:59 Exam Location: [facility] Ht (in): 61 Wt (lb): 168 Ordering Physician: Clement Mendoza Attending/Referring Phys: Kelly Vaughan;[id number] Spray Dry Operator Jazmín Laird RDCS Procedure CPT: Indications: eval structure and function of heart, TIA vs CVA Cardiac Hx: Technical Quality: Good Contrast 1: Total Dose (mL): Contrast 2: Total Dose (mL): MEASUREMENTS (Male / Female) Normal Values 2D ECHO LV Diastolic Diameter PLAX 3.3 cm 4.2 - 5.9 / 3.9 - 5.3 cm LV Systolic Diameter PLAX 2.3 cm IVS Diastolic Thickness 1.3 cm 0.6 - 1.0 / 0.6 - 0.9 cm LVPW Diastolic Thickness 1.0 cm 0.6 - 1.0 / 0.6 - 0.9 cm LV Relative Wall Thickness 0.7 RV Internal Dim ED PLAX 3.2 cm LA Systolic Diameter LX 3.7 cm 3.0 - 4.0 / 2.7 - 3.8 cm LV Diastolic Volume MOD BP 36.6 cm??? 67 - 155 / 56 - 104 cm??? LV Systolic Volume MOD BP 11.3 cm??? 22 - 58 / 19 - 49 cm??? LV Ejection Fraction MOD BP 69.1 % >= 55 % LV Cardiac Index MOD BP 1193.2 cm???/min???m??? LV Diastolic Volume MOD 4C 34.8 cm??? LV Systolic Volume MOD 4C 13.5 cm??? LV Ejection Fraction MOD 4C 61.0 % LV Cardiac Index MOD 4C 1001.8 cm???/min???m??? LV Diastolic Length 4C 6.7 cm LV Systolic Length 4C 6.2 cm LV Diastolic Volume MOD 2C 41.5 cm??? LV Systolic Volume MOD 2C 9.7 cm??? LV Ejection Fraction MOD 2C 76.7 % LV Cardiac Index MOD 2C 1503.5 cm???/min???m??? LV Diastolic Length 2C 6.7 cm LV Systolic Length 2C 6.0 cm LA Volume 46.5 cm??? 18 - 58 / 22 - 52 cm??? M-MODE Aortic Root Diameter MM 2.9 cm MV E Point Septal Separation 0.6 cm AV Cusp Separation MM 2.1 cm DOPPLER AV Peak Velocity 140.1 cm/s AV Peak Gradient 7.9 mmHg MV E' Velocity 11.5 cm/s TR Peak Velocity 223.9 cm/s TR Peak Gradient 20.1 mmHg Right Ventricular Systolic Press 24.6 mmHg FINDINGS Left Ventricle Left ventricular ejection fraction is estimated at 60-65 %. Small left ventricular cavity. Moderately increased septal wall thickness. Mildly increased posterior wall thickness. Right Ventricle Normal right ventricular size. Right ventricular systolic pressure within normal limits. Right Atrium Normal right atrial size. Left Atrium Normal left atrial size. Mitral Valve Structurally normal mitral valve. Mitral annular calcification. Aortic Valve Trileaflet aortic valve. No aortic valve stenosis or regurgitation. Tricuspid Valve Structurally normal tricuspid valve. Mild tricuspid regurgitation. Pulmonic Valve Pulmonic valve not well visualized. Pericardium No pericardial effusion. Aorta Normal size aortic root and proximal ascending aorta. CONCLUSIONS Normal of the systolic function. Moderate concentric LVH. The ejection fraction is 60-65% Previewed by: Dr. Medardo Long MD (Electronically Signed) Final Date: 05 April 2023 11:35
--- NOTE | 2023-04-05 11:57 | MR ---
EXAMINATION TYPE: MR brain wo con DATE OF EXAM: 04/05/2023 11:36 AM COMPARISON: CT brain. 04/03/2023. CLINICAL INDICATION:Female, 77 years old with history of Stroke/TIA; Neuro deficits TECHNIQUE: Multi planar, multi sequence imaging was performed through the brain including: T1, T2, In version recovery, Diffusion weighted imaging, and gradient echo imaging. No gadolinium was given. FINDINGS: Area of restricted diffusion within the left thalamus. Remote injury to the left basal gang eliazar as seen on CT. Ventricular dilation in proportion to cerebral atrophy. Scattered foci of high T2 signal intensity are seen within the periventricular white matter. Midline structures show no abnorma lity. The susceptibility weighted images do not reveal any evidence for micro-hemorrhage. The bone marrow signal is within normal limits. Paranasal sinuses and mastoid air cells: No significant paranasal sinus disease. Visualized orbits: Orbital contents are intact. IMPRESSION: 1. Acute/subacute CVA involving the left thalamus. 2. Remote appearing injury of the left basal ganglia. 3. Nonspecific white matter changes, likely secondary to small vessel ischemic disease.
--- NOTE | 2023-04-05 11:58 | MR ---
EXAMINATION TYPE: MR angio head wo con DATE OF EXAM: 04/05/2023 11:36 AM CLINICAL INDICATION:Female, 77 years old with history of Aneurysm; Neuro deficits COMPARISON: CT January 01, 2023, MRI same day. Technical: 3-D [id number] Axial with MIP reconstruction created on a separate workstation.. IV Contrast: None Findings: Vertebral arteries: The vertebral arteries are patent. Vertebral arteries are: Codominant. Basilar artery: The basilar artery is intact. The basilar artery bifurcation is normal. Internal Carotid arteries: The cervical, petrous, cavernous and supraclinoid segments are normal. ZARA: Patent with no evidence of aneurysm. ACOM: Present without evidence of aneurysm. MCA: Patent with no evidence of aneurysm. SMT OPERATOR: Patent with no evidence of aneurysm. PCOM: Hypoplastic bilaterally. IMPRESSION: No evidence of aneurysm or significant stenosis.
[2023-04-05 12:04] VITALS: BP 133/94; RESP 16
[2023-04-05] MEDS ORDERED: CLOPIDOGREL 75 MG TAB PO SCH (13:00)
--- NOTE | 2023-04-05 13:29 | P.DS ---
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 Hypertensive urgency with history of hypertension, resolved. Hyperlipidemia. Lipid profile also elevated showing total triglycerides 229, cholesterol 237, LDL 139, VLDL 45.8. Pravastatin increased to 40 mg daily. Hemoglobin A1c elevated at 6.9%. Patient newly diagnosed type II [id number] diabetes mellitus. Patient discharged home and instructed to check glucose levels daily and document these findings in a daily log/sternal to bring with her to her next doctor's appointment. Patient also started on Glucophage 500 mg twice daily. Patient encouraged to follow a heart healthy and carb consistent diet. Large intrathoracic hiatal hernia. CT chest completed showing a large hiatal hernia involving half of the stomach in the lower chest. Consult placed to Gen. surgery for evaluation and they recommended outpatient follow-up regarding large hiatal hernia to further discuss surgical options. Abnormal imaging findings, enlarged mediastinal lymph nodes. CT chest showing mediastinal lymph nodes appear prominent but not enlarged. Reported to be overall benign appearance. Lung nodules, recommend 6 month follow-up CT to reassess. CT head revealing concerns of a possible 3 mm saccular aneurysm, recommend follow-up MRI in 6 months. Chronic lower back pain secondary to lumbar stenosis Hospital Course: Patient is a very pleasant 77-year-old female with a past medical history of hypertension, hyperlipidemia, and chronic lumbar back pain. Patient reports awakening with normal mentation and approximately 10 minutes later she began to notice some tingling in her right arm followed by right-sided weakness to her face, arm, and leg. Patient and her at bedside reports this was then accompanied by difficulty with her speech stating she was both slurring her words but also having difficulties getting words out. Patient states in addition she has minor headache to frontal region of head but denies having any dizziness, lightheadedness, changes in vision or hearing, dysphasia, chest pain, palpitations, shortness of breath, or any other complaints at this time. Patient underwent stroke workup in the emergency department. Upon arrival patient had full resolution of her difficulties with speech and right-sided weakness and facial droop had resolved. Patient reported only residual deficit at time of arrival was right arm tingling and was initially given an NIH score of 1. CT head was completed and radiology report reviewed stating positive for old lacunar infarct of left basal ganglia and negative for acute intercranial abnormality. CTA neck completed and radiology report stating patent vertebral and carotid arteries of the neck with no hemodynamically significant stenosis, apparent direct takeoff of the left vertebral artery directly from the aortic arch, nondominant right vertebral artery and vertebral arteries relatively small in caliber likely on congenital basis, and mildly enlarged mediastinal left hilar lymph nodes measuring up to 1.[address] chest to evaluate and exclude underlying neoplasm. 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 EKG completed showing normal sinus rhythm at 71 bpm upon personal review and interpretation. Chest x-ray negative for acute cardiopulmonary process. Labs completed and reviewed. CBC and coagulation profile were unremarkable. BMP showing mild hyponatremia with sodium of 135, hypocarbia with bicarb of 20, and blood glucose of 119. Liver profile unremarkable. Troponin negative at less than 0.012. Patient was admitted to cardiac stepdown unit with telemetry. Consult placed to neurology. Hemoglobin A1c resulting in 6.9%. Lipid profile showing elevated triglycerides of 229, total cholesterol 237, LDL of 139, and VLDL of 45.80. Echocardiogram was completed showing preserved EF of 60-65% with moderate concentric LVH and no other reported structural or valvular abnormalities. CT chest was completed secondary to Mediastinal lymph nodes concerning for possible metastatic process, CT showing the mediastinal lymph nodes appear prominent but not enlarged showing an overall benign appearance. Patient did have a couple 4 mm right lower lung nodules recommending six-month follow-up to reassess.CT also revealed large intrathoracic hiatal hernia showing large hiatal hernia involving half of the stomach in the lower chest and a consult was placed to Gen. surgery. Patient was evaluated by neurologist. 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 MRA was negative showing no evidence of aneurysm or significant stenosis.Patient was started on Plavix 75 mg daily and neurology recommending patient continue with dual antiplatelet therapy for the next 21 days followed by aspirin for life. Pravastatin also increased to 40 mg daily secondary to elevated lipid profile. Lastly patient was discharged home with metformin 500 mg twice daily secondary to elevated hemoglobin A1c and newly diagnosed diabetes mellitus type 2. Patient will need extensive outpatient continued follow-up with PCP, neurologist, and general surgery as discussed. Upon discharge patient's residual deficits from acute ischemic stroke include numbness and tingling to right upper lip, right index finger and right thumb. Physical exam: Vital signs reviewed and stable. General: Nontoxic, no distress and appears stated age. Derm: Skin warm and dry, normal coloration for ethnicity. Head: Atraumatic, normocephalic and symmetric. Eyes: EOMs intact, no lid lag, and anicteric sclera Mouth: no lip lesions, mucus membranes moist Cardiovascular: regular rate and rhythm with normal S1S2, systolic murmur, positive posterior tibial pulses bilaterally, and cap refill < 2 seconds. Lungs: Respirations even, regular, and unlabored on room air. Lungs CTA bilaterally, no rhonchi, no rales, no wheezing, and no accessory muscle usage. Abdominal: soft, nontender to palpation, no guarding, no appreciable organomegaly Ext: ROM intact. No gross muscle atrophy, no edema, no contractures Neuro: Speech clear, face symmetrical and CN II-XII grossly intact with no noted focal neuro deficits. Patient does report tingling and decreased sensation to right index finger and thumb remains. Normal [id number]. Strength equal. Patient did have some noted difficulty with placement of right index finger upon assessing finger to nose. Psych: Alert and oriented to person, place, time, and situation. Appropriate and pleasant affect. A total of 42 minutes of time were spent preparing this complex discharge summary. Pt was discharged on 04/05/23 at 1:29 PM. Patient was seen independently by Nurse Practitioner. This document was prepared using Kiwi dictation software. Please allow for errors in planogrammer while rare they do occur. Patient Condition at Discharge: Stable Plan - Discharge Summary Discharge Rx Participant: No New Discharge Prescriptions: New Aspirin 81 mg PO DAILY 30 Days #30 tab metFORMIN HCL [Glucophage] 500 mg PO BID 30 Days #60 tab Clopidogrel [Plavix] 75 mg PO DAILY 20 Days #20 tab Continue Calcium Carbonate/Vitamin D3 [Calcium 500 mg-Vit D3 5 mcg (200 Unit)] 1 tab PO DAILY Omeprazole 20 mg PO DAILY S-Adenosylmethionine Sul Tosyl [Leighton-E] 200 mg PO DAILY Omeprazole Vitamin B Complex 1 cap PO DAILY Multivitamins, Thera [Multivitamin (formulary)] 1 tab PO DAILY Estrogens, Conjugated [Premarin] 0.3 mg PO Q48H Losartan [Cozaar] 25 mg PO DAILY DULoxetine HCL [Cymbalta] 20 mg PO DAILY Changed Pravastatin Sodium [Pravachol] 40 mg PO DAILY 90 Days #180 tab Discharge Medication List Calcium Carbonate/Vitamin D3 [Calcium 500 mg-Vit D3 5 mcg (200 Unit)] 1 tab PO DAILY 04/03/23 [History] DULoxetine HCL [Cymbalta] 20 mg PO DAILY 04/03/23 [History] Estrogens, Conjugated [Premarin] 0.3 mg PO Q48H 04/03/23 [History] Losartan [Cozaar] 25 mg PO DAILY 04/03/23 [History] Multivitamins, Thera [Multivitamin (formulary)] 1 tab PO DAILY 04/03/23 [History] Omeprazole 04/03/23 [History] Omeprazole 20 mg PO DAILY 04/03/23 [History] S-Adenosylmethionine Sul Tosyl [Leighton-E] 200 mg PO DAILY 04/03/23 [History] Vitamin B Complex 1 cap PO DAILY 04/03/23 [History] Aspirin 81 mg PO DAILY 30 Days #30 tab 04/05/23 [Rx] Clopidogrel [Plavix] 75 mg PO DAILY 20 Days #20 tab 04/05/23 [Rx] Pravastatin Sodium [Pravachol] 40 mg PO DAILY 90 Days #180 tab 04/05/23 [Rx] metFORMIN HCL [Glucophage] 500 mg PO BID 30 Days #60 tab 04/05/23 [Rx] Follow up Appointment(s)/Referral(s): Burton Lopez MD [Medical Doctor] - 1 Week (Spoke to concierge receptionist. Office will call with appointment time) Roderick Woodard MD [REFERRING] - 1 Week ((Primary Care) Please call to schedule appointment) Asia De Dios MD [REFERRING] - 2 Weeks (Neurologist. Please call to schedule appointment. We will also need MRA of galena of Nunez 6 month follow-up for suspected 3 mm saccular aneurysm) Patient Instructions/Handouts: Type 2 Diabetes in Adults: New Diagnosis (DC), Ischemic Stroke (DC) Activity/Diet/Wound Care/Special Instructions: Activity: As tolerated. Take breaks as needed. Diet: Heart healthy and carb consistent diet. Avoid salts, or foods with hidden salts such as canned or boxed foods and frozen dinners. Extra salt makes your heart work harder and traps the fluid in your body for longer. Special Instructions: Take all of your medications as directed and remember to keep all of your doctor's appointments and follow-up as needed. As discussed at bedside he will need to check your blood glucose closely levels daily and document these findings in a daily log/sternal to bring him with you to your next doctor's appointment. Prescription was being written for a glucometer and supplies, however he states that you had these supervising glucometer at home. You are being started on metformin 500 mg twice daily. As discussed you're being discharged home on Plavix 75 mg daily for the next 21 days and will continue with aspirin 81 mg daily for life. Pravastatin was increased to 40 mg daily secondary to persistently elevated cholesterol levels. 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 Pulmonary nodules, CT revealed mediastinal lymph nodes prominent but not enlarged showing benign appearance, however there were a couple 4 mm right lower lung nodules recommending a 6 month follow-up to reassess. CT chest can be reordered by your primary care doctor. Thank you for allowing us to participate in your care, it was truly a pleasure having you for our patient!!! Discharge Disposition: HOME SELF-CARE
--- NOTE | 2023-04-05 13:41 | P.GSCN ---
History of Present Illness Consult date: 04/05/23 History of present illness: CHIEF COMPLAINT: Right-sided weakness and slurred speech HISTORY OF PRESENT ILLNESS: This is a 77-year-old female who presented with right-sided weakness and slurred speech. She's been diagnosed with an acute stroke. Has been seen and evaluated by neurology they have started her on aspirin and Plavix. They have cleared her for discharge today. Patient did have a computed tomography scan of the chest done which did reveal a large hiat al hernia with half of the stomach noted in the chest. Patient says she has a known history of large hiatal hernia. She reports that she has been dealing with acid reflux and indigestion. Also on does have a lot of burping. She notes to be short of breath with ambulating up stairs. She is on room air. She is able to tolerate diet. She has made adjustments with eating small frequent meals and chewing her food well. PAST MEDICAL HISTORY: See below PAST SURGICAL HISTORY: See below MEDICATIONS: See below ALLERGIES: See below SOCIAL HISTORY: No illicit drug use. REVIEW OF SYSTEMS: CONSTITUTIONAL: Denies fever or chills. HEENT: Denies blurred vision, vision changes, or eye pain. Denies hemoptysis CARDIOVASCULAR: Denies chest pain or pressure. RESPIRATORY: No shortness of breath. GASTROINTESTINAL: See HPI for pertinent findings HEMATOLOGIC: Denies bleeding disorders. GENITOURINARY: Denies any blood in urine or increased urinary frequency. SKIN: Denies pruitis. Denies rash. PHYSICAL EXAM: VITAL SIGNS: Reviewed GENERAL: Well-developed in no acute distress. HEENT: No sclera icterus. Extraocular movements grossly intact. Moist buccal mucosa. Head is atraumatic, normocephalic. No nasal drainage. ABDOMEN: Soft. Obese. Nondistended. Tenderness with palpation to right lower quadrant. NEUROLOGIC: Alert and oriented. Cranial nerves II through XII grossly intact. LABORATORY DATA: WBC 8.2 Hgb 14.6 platelets 214 Sodium 135 potassium 3.8 creatinine 0.51 IMAGING: MRI of brain revealing acute/subacute CVA involving the left thalamus CT chest large hiatal hernia involving half of the stomach and the lower chest. Stranding areas of atelectasis bilaterally. Mediastinal lymph nodes. 4 mm right lower lung pulmonary nodule. ASSESSMENT: 1. Large hiatal hernia involving half of the stomach is in the lower chest 2. CVA PLAN: -Recommend outpatient follow-up regarding large hiatal hernia -Patient can be discharged from surgical standpoint when medically cleared Thank you for this consultation Physician Specialized Developer note has been reviewed by physician. Signing provider agrees with the documented findings, assessment, and plan of care. Past Medical History Past Medical History: Hyperlipidemia, Hypertension Additional Past Medical History / Comment(s): pre diabetic History of Any Multi-Drug Resistant Organisms: None Reported Past Surgical History: No Surgical Hx Reported Past Anesthesia/Blood Transfusion Reactions: No Reported Reaction Past Psychological History: No Psychological Hx Reported Smoking Status: Never smoker Past Alcohol Use History: None Reported Past Drug Use History: None Reported - Past Family History Father Family Medical History: Diabetes Mellitus Mother Family Medical History: Diabetes Mellitus Sister(s) Family Medical History: CVA/TIA Medications and Allergies Home Medications Medication Instructions Recorded Confirmed Type Calcium Carbonate/Vitamin D3 1 tab PO DAILY 04/03/23 04/03/23 History [Calcium 500 mg-Vit D3 5 mcg (200 Unit)] DULoxetine HCL [Cymbalta] 20 mg PO DAILY 04/03/23 04/03/23 History Estrogens, Conjugated [Premarin] 0.3 mg PO Q48H 04/03/23 04/03/23 History Losartan [Cozaar] 25 mg PO DAILY 04/03/23 04/03/23 History Multivitamins, Thera [Multivitamin 1 tab PO DAILY 04/03/23 04/03/23 History (formulary)] Omeprazole 04/03/23 History Omeprazole 20 mg PO DAILY 04/03/23 04/03/23 History S-Adenosylmethionine Sul Tosyl 200 mg PO DAILY 04/03/23 04/03/23 History [Leighton-E] Vitamin B Complex 1 cap PO DAILY 04/03/23 04/03/23 History Aspirin 81 mg PO DAILY 30 Days #30 tab 04/05/23 Rx Clopidogrel [Plavix] 75 mg PO DAILY 20 Days #20 tab 04/05/23 Rx Pravastatin Sodium [Pravachol] 40 mg PO DAILY 90 Days #180 tab 04/05/23 Rx metFORMIN HCL [Glucophage] 500 mg PO BID 30 Days #60 tab 04/05/23 Rx Allergies Allergy/AdvReac Type Severity Reaction Status Date / Time sulfamethoxazole AdvReac Unknown Verified 04/03/23 08:54 [From Bactrim] tetracycline AdvReac Unknown Verified 04/03/23 08:54 trimethoprim [From Bactrim] AdvReac Unknown Verified 04/03/23 08:54 Surgical - Exam Vital Signs Temp Pulse Resp BP Pulse Ox 98.2 F 73 18 220/99 98 04/03/23 08:54 04/03/23 08:54 04/03/23 08:54 04/03/23 08:54 04/03/23 08:54 Results - Labs 04/03/23 08:56 04/03/23 09:20
== END 2023-04-05 14:33 | disposition home or self-care (01) | DRG 65 ==
LOC: EC 08:45 → 3SCARD 10:53
PROVIDERS: ADMIT Student in an Organized Health Care Education/Training Program; ATTEND Student in an Organized Health Care Education/Training Program
DX: I63.9 Cerebral infarction, unspecified (principal); E87.1 Hypo-osmolality and hyponatremia; G81.91 Hemiplegia, unspecified affecting right dominant side; R47.81 Slurred speech; R29.701 NIHSS score 1; R47.01 Aphasia; I16.0 Hypertensive urgency; I10 Essential (primary) hypertension; E78.5 Hyperlipidemia, unspecified; E11.9 Type 2 diabetes mellitus without complications; M48.061 Spinal stenosis, lumbar region without neurogenic claudication; I67.1 Cerebral aneurysm, nonruptured; G89.29 Other chronic pain; K21.9 Gastro-esophageal reflux disease without esophagitis; E78.1 Pure hyperglyceridemia; R59.0 Localized enlarged lymph nodes; K44.9 Diaphragmatic hernia without obstruction or gangrene; Z88.2 Allergy status to sulfonamides; Z88.1 Allergy status to other antibiotic agents; Z86.73 Personal history of transient ischemic attack (TIA), and cerebral infarction without residual deficits; Z79.899 Other long term (current) drug therapy; Z79.84 Long term (current) use of oral hypoglycemic drugs; Z79.82 Long term (current) use of aspirin; Z79.02 Long term (current) use of antithrombotics/antiplatelets
CPT/HCPCS: 36415; 70450; 70496; 70498; 70544; 70551; 71046; 71250; 80053; 80061; 82550; 83036; 84484; 85025; 85610; 85730; 93005; 93306; 94760; 96360; 99285

== ENCOUNTER → 2024-06-05 | Outpatient (CLI) | payer MEDICARE, OTHER ==
--- NOTE | 2024-06-05 17:45 | XR ---
EXAMINATION TYPE: XR elbow complete LT DATE OF EXAM: 06/05/2024 4:45 PM COMPARISON: None CLINICAL INDICATION: Female, 78 years old with history of M25.522 LT ELBOW PAIN; PH[facility] TECHNIQUE: XR elbow complete LT; elbow was examined in AP, lateral, and oblique projections. FINDINGS: Moderate degeneration with osteophyte formation. No evidence of any acute osseous pathology , joint dislocation, or soft tissue swelling is noted. No evidence of joint effusion is present. IMPRESSION: Moderate degeneration changes of the elbow. No evidence of fracture. [facility], Workstation: [id number], 06/05/2024 5:42 PM
== END | disposition home or self-care (01) ==
LOC: RADXRMAIN 16:23
PROVIDERS: ATTEND Physical Medicine & Rehabilitation
DX: M25.722 Osteophyte, left elbow (principal)

== ENCOUNTER → 2024-06-26 | Outpatient (CLI) | payer MEDICARE, OTHER ==
--- NOTE | 2024-06-26 20:27 | MR ---
EXAMINATION TYPE: MRI left elbow without IV contrast DATE OF EXAM: 06/26/2024 COMPARISON: Radiographs 05/16/2024 HISTORY: Left elbow pain and locking x2 yrs, Hx PT x2 sessions with no improvement,Evaluate for left lateral epicondylitis Standard multiplanar, multisequence MRI departmental protocol Multiplanar, multisequence images of the left elbow were acquired without contrast. FINDINGS: Limited exam due to motion. Ulnar collateral ligament is intact. Degenerative signal in the radial collateral ligament which is o therwise intact. Moderate common extensor tendinopathy. Mild common flexor tendinopathy. Biceps, brachialis and triceps tendons are intact. Negative for acute fracture or marrow replacement. 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 Large osteophytes are also present within the corono id and olecranon fossa. Mild/moderate elbow joint effusion with low-level synovitis. Ulnar nerve is within normal limits. Musculature is satisfactory. IMPRESSION: 1. Moderate common extensor and mild common flexor tendinopathy. 2. 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 3. Mild/moderate joint effusion. [facility], , 06/26/2024 8:25 PM
== END | disposition home or self-care (01) ==
LOC: RADMRIMAIN 15:42
PROVIDERS: ATTEND Physical Medicine & Rehabilitation
DX: M77.12 Lateral epicondylitis, left elbow (principal); M19.022 Primary osteoarthritis, left elbow; M25.422 Effusion, left elbow